=== PATIENT | male | born 1980 | race Caucasian/White ===

== ENCOUNTER 2017-09-26 14:49 | Emergency (ER) | payer MEDICAID, OTHER ==
[~2017-09-26] VITALS: Ht 162.6 cm; Wt 87.3 kg
[2017-09-26 15:08] VITALS: BP 121/83
== END 2017-09-26 15:40 | disposition home or self-care (01) ==
LOC: EMS 14:49
DX: S61.512A Laceration without foreign body of left wrist, initial encounter (principal); J45.909 Unspecified asthma, uncomplicated; Z87.891 Personal history of nicotine dependence; W22.8XXA Striking against or struck by other objects, initial encounter; Y93.89 Activity, other specified; Y92.89 Other specified places as the place of occurrence of the external cause; Y99.8 Other external cause status
CPT/HCPCS: 99283